=== PATIENT | female | born 1970 | race Caucasian/White ===

== ENCOUNTER 2018-10-29 09:39 | Outpatient (CLI) | payer MEDICAID, SELFPAY ==
[2018-10-29 12:03] LABS: HCT 46.4 % (36.0-46.0); HGB 15.4 g/dL (12.0-15.5); Mean Corp. HGB Concentration 33.2 g/dL (32.0-36.0); Mean Corpuscular Hemoglobin 30.7 pg (27.0-33.0); Mean Corpuscular Volume 92.6 fL (80-95); Mean Platelet Volume 9.8 fL (8.0-11.0); Platelet Count 364 x1000/uL (130-400); RBC 5.01 m/cumm (4.00-5.20); RBC Distribution Width 14.3 % (11.7-14.6)
[2018-10-29 12:40] LABS: ALT 17 U/L (12-78); AST 14 U/L (15-37); Albumin 3.7 g/dL (3.4-5.0); Alkaline Phosphatase 99 U/L (46-116); BUN 15 mg/dL (7-18); Bilirubin, Total 0.3 mg/dL (0.2-1.0); CREATININE 0.98 mg/dL (0.55-1.02); Calcium 9.3 mg/dL (8.5-10.1); Chloride 105 mmol/L (98-107); Glucose 97 mg/dL (70-100); Magnesium 2.3 mg/dL (1.8-2.4); Potassium 4.5 mmol/L (3.5-5.1); Sodium 141 mmol/L (136-145); Total Protein 6.6 g/dL (6.4-8.2)
== END 2018-10-29 09:59 ==
PROVIDERS: PCP Family Medicine; Visit Provider Family Medicine
DX: K21.9 Gastro-esophageal reflux disease without esophagitis (principal); F31.9 Bipolar disorder, unspecified
CPT/HCPCS: 36415; 80053; 85027; 83735

== ENCOUNTER 2018-12-10 00:43 | Outpatient (CLI) | payer MEDICAID, SELFPAY ==
--- NOTE | 2018-12-10 10:00 | DI.MAMMO_ITS ---
SYMPTOM/DIAGNOSIS: SCREENING, Z12.31 MAMMOGRAMS: Mammograms were interpreted according to the usual protocol including computer analysis with CAD system, tomosynthesis and C view imaging. Comparison is made with prior examinations. Breast density, Category B. No suspicious masses or microcalcifications are seen. There is no definite evidence of malignancy. IMPRESSION: Negative mammogram. Routine screening is recommended. Category 1. MQSA ASSESSMENT OF FINDINGS: Negative. Category 1. Patient will receive a letter notifying them of these results. BI-RADS category B. There are scattered areas of fibroglandular density.
== END 2018-12-10 01:03 ==
PROVIDERS: PCP Family Medicine; Visit Provider Family Medicine
DX: Z12.31 Encounter for screening mammogram for malignant neoplasm of breast (principal)
CPT/HCPCS: 77063; 77067

== ENCOUNTER 2020-01-22 01:14 | Outpatient (CLI) | payer MEDICAID, SELFPAY ==
[2020-01-22 10:39] LABS: HCT 46.6 % (36.0-46.0); HGB 15.7 g/dL (12.0-15.5); Mean Corp. HGB Concentration 33.7 g/dL (32.0-36.0); Mean Corpuscular Hemoglobin 31.7 pg (27.0-33.0); Mean Platelet Volume 9.3 fL (8.0-11.0); Platelet Count 410 x1000/uL (130-400); RBC 4.96 m/cumm (4.00-5.20); RBC Distribution Width 13.7 % (11.7-14.6); White Blood Cell Count 10.83 k/cumm (4.4-10.8)
[2020-01-22 11:09] LABS: ALT 20 U/L (14-59); AST 13 U/L (15-37); Albumin 3.9 g/dL (3.4-5.0); Alkaline Phosphatase 104 U/L (46-116); Anion Gap 11.4 mmol/L (3-11); BUN 17 mg/dL (7-18); Bilirubin, Total 0.3 mg/dL (0.2-1.0); CO2 23.6 mmol/L (21.0-32.0); CREATININE 1.24 mg/dL (0.55-1.02); Calcium 9.2 mg/dL (8.5-10.1); Calculated LDL 167 mg/dL (<100); Chloride 107 mmol/L (98-107); Cholesterol 228 mg/dL (<200); Estimated GFR 45.79 (mL/min/1.73m2); Glucose 118 mg/dL (74-106); HDL Cholesterol 42 mg/dL (40-60); Magnesium 2.2 mg/dL (1.8-2.4); Potassium 4.4 mmol/L (3.5-5.1); Sodium 142 mmol/L (136-145); TSH 1.85 uIU/mL (0.36-3.74); Total Protein 6.9 g/dL (6.4-8.2); Triglyceride 99 mg/dL (<150)
[2020-01-23 09:04] LABS: Prolactin 17.8 ng/mL (See Table)
[2020-01-24 11:30] LABS: Lamotrigine 6.2 mcg/mL (2.5 - 15.0)
== END 2020-01-22 01:34 ==
PROVIDERS: PCP Family Medicine; Visit Provider Family Medicine
DX: F31.9 Bipolar disorder, unspecified (principal); E83.42 Hypomagnesemia; N64.3 Galactorrhea not associated with childbirth; Z51.81 Encounter for therapeutic drug level monitoring; Z79.899 Other long term (current) drug therapy
CPT/HCPCS: 36415; 80053; 80061; 80175; 85027; 83735; 84146; 84443

== ENCOUNTER 2020-11-02 15:25 | Outpatient (REF) | payer MEDICAID, SELFPAY ==
--- NOTE | 2020-11-02 15:00 | PAPFT_PTH ---
PATIENT: Ana Cote LOC: [facility] U#:[id number] AGE/SX: 50/F ROOM: RE11/02/[address]: Hortencia Arellano MD : 1970 BED: DIS: 11/02/2020 SPEC #: [id number] RECD: 11/03/20 12:23 STATUS: AUGUSTINA REBria #: [id number] RAQUEL: 11/02/20 15:[address]: Hortencia Arellano DEPT: [facility] Cytology RECD BY: Gracia Cast Tissues: 1 - CX/ENDOCX FOR PAP SMEARS Procedures: PAP THIN PREP/UVM Screening HPV DNA PROBE Comments: [id number] (CHLAMYDIA/GC)
[2020-11-06 15:00] LABS: Chlamydia Result Negative (Negative); GC Result Negative (Negative)
== END 2020-11-02 15:26 | disposition home or self-care (01) ==
LOC: LBN 15:25
PROVIDERS: PCP Family Medicine; Visit Provider Family Medicine
DX: Z11.3 Encounter for screening for infections with a predominantly sexual mode of transmission (principal); Z12.4 Encounter for screening for malignant neoplasm of cervix; Z11.51 Encounter for screening for human papillomavirus (HPV)
CPT/HCPCS: 87491; 87591; 88142; 87624

== ENCOUNTER 2020-12-22 03:22 | Outpatient (CLI) | payer MEDICARE, MEDICAID, SELFPAY ==
[2020-12-22 12:45] LABS: Anion Gap 8.7 mmol/L (3-11); BUN 14 mg/dL (7-18); CO2 28.3 mmol/L (21.0-32.0); Calcium 9.2 mg/dL (8.5-10.1); Calculated LDL 169 mg/dL (<100); Chloride 106 mmol/L (98-107); Cholesterol 237 mg/dL (<200); Estimated GFR 58.45 (mL/min/1.73m2); Glucose 98 mg/dL (74-106); HDL Cholesterol 40 mg/dL (40-60); Potassium 4.2 mmol/L (3.5-5.1); Sodium 143 mmol/L (136-145); Triglyceride 142 mg/dL (<150)
== END 2020-12-22 03:23 | disposition home or self-care (01) ==
LOC: LOS 03:22
PROVIDERS: PCP Family Medicine; Visit Provider Family Medicine
DX: E78.5 Hyperlipidemia, unspecified (principal)
CPT/HCPCS: 36415; 80048; 80061

== ENCOUNTER 2022-01-18 02:03 | Outpatient (CLI) | payer MEDICARE, MEDICAID, SELFPAY ==
[2022-01-18 12:32] LABS: HCT 45.6 % (36.0-46.0); HGB 15.9 g/dL (11.2-15.7); MCH 32.6 pg (27.0-33.0); MCHC 34.9 % (32.0-36.0); MCV 93 fL (80-95); MPV 9.8 fL (8.0-11.0); Platelet Count 381 10^3/uL (130-400); RBC 4.88 10^6/uL (3.93-5.22); RDW 13.6 % (11.7-14.6); RDW-SD 46.8 fL; WBC 11.58 10^3/uL (4.4-10.8)
[2022-01-18 12:49] LABS: Hemoglobin A1C 5.6 % (<5.7)
[2022-01-18 13:02] LABS: ALT 23 U/L (14-59); AST 13 U/L (15-37); Albumin 3.9 g/dL (3.4-5.0); Alkaline Phosphatase 109 U/L (46-116); Anion Gap 11.6 mmol/L (3-11); BUN 12 mg/dL (7-18); Bilirubin, Total 0.4 mg/dL (0.2-1.0); CO2 23.4 mmol/L (21.0-32.0); Calcium 8.8 mg/dL (8.5-10.1); Calculated LDL 118 mg/dL (<100); Chloride 106 mmol/L (98-107); Cholesterol 183 mg/dL (<200); Estimated GFR 58.22 (mL/min/1.73m2); Glucose 112 mg/dL (74-106); HDL Cholesterol 48 mg/dL (40-60); Potassium 4.2 mmol/L (3.5-5.1); Sodium 141 mmol/L (136-145); TSH (W/Ref FT4) 1.64 uIU/mL (0.36-3.74); Total Protein 6.6 g/dL (6.4-8.2); Triglyceride 89 mg/dL (<150)
[2022-01-18 22:54] LABS: Prolactin 10.9 ng/mL (See Note)
[2022-01-19 11:01] LABS: Hepatitis C Ab w Rflx HCV PCR Negative (Negative)
[2022-01-19 11:18] LABS: HIV-1/2 Ag & Ab Screen Negative (Negative)
== END 2022-01-18 02:04 | disposition home or self-care (01) ==
LOC: LOS 02:03
PROVIDERS: PCP Nurse Practitioner; Visit Provider Family Medicine
DX: E78.5 Hyperlipidemia, unspecified (principal); D72.829 Elevated white blood cell count, unspecified; F31.9 Bipolar disorder, unspecified; I10 Essential (primary) hypertension; R73.9 Hyperglycemia, unspecified; J45.909 Unspecified asthma, uncomplicated; Z79.899 Other long term (current) drug therapy; Z11.59 Encounter for screening for other viral diseases; Z11.4 Encounter for screening for human immunodeficiency virus [HIV]
CPT/HCPCS: 36415; 80053; 80061; 85027; 86803; 87389; 83036; 84146; 84443

== ENCOUNTER → 2022-05-10 02:01 | Outpatient (CLI) | payer MEDICARE, MEDICAID, SELFPAY ==
--- NOTE | 2022-05-10 12:05 | DI.MAMMO_ITS ---
Exam(s) MAMMO SCREENING EXAM: MAMMO SCREENING CLINICAL HISTORY: screening,Z12.39 TECHNIQUE: Bilateral full field digital CC and MLO mammographic images were obtained with 3D tomosyn thesis and utilizing computer aided detection (CAD). COMPARISON: Available for comparison. FINDINGS: Masses/Architectural Distortion: None seen. Microcalcifications: No suspicious pleomorphic-type are seen. Skin Thickening/Nipple Retraction: None. IMPRESSION: 1. No significant interval change with no specific features of malignancy noted. 2. Unless there is more urgent need, screening mammography is recommended, as per [employer] [place] [employer] guidelines. BI-RADS Category 1 - Negative Breast Density - Category B - Scattered areas of fibroglandular density Breast density category C or D implies that the patient has dense breast tissue. Dense breast tissue is very common and is not abnormal but dense breast tissue can make it harder to find cancer on a ma mmogram. Also, dense breast tissue may increase their breast cancer risk. This information about the result of the mammogram report was provided to the patient to raise their awareness. Use this report when you speak with the patient about their risks for breast cancer, which includes their family hist ory. At that time, you may recommend for more screening tests (Ultrasound or MRI) as they might be us eful based on their risk. A negative radiographic report should not delay biopsy if a dominant or clinically suspicious mass is present. Up to ten percent of cancers are not identified on mammography. A negative report may reinforce clinical impression. Adenosis and dense breasts may obscure an underlying neoplasm. False positive reports average 6 to 10%. Patient will receive a letter notifying them of these results.
== END ==
PROVIDERS: PCP Nurse Practitioner; Visit Provider Family Medicine
DX: Z12.31 Encounter for screening mammogram for malignant neoplasm of breast (principal)
CPT/HCPCS: 77063; 77067

== ENCOUNTER 2022-05-27 13:49 | Outpatient (CLI) | payer MEDICARE, MEDICAID, SELFPAY ==
--- NOTE | 2022-05-27 13:45 | RT.EKG_ITS ---
APPROVED REPORT Exam: Resting ECG Reason for Exam: chest discomfort Patient Location: O HR:67 bpm ECG Measurements Heart Rate 67 AXIS MN 170 P 65 QRSd 97 QRS 32 QT 383 T 65 QTc 405 Conclusion Sinus rhythm...normal P axis, V-rate 50- 99 Probable left atrial enlargement...P >50mS, <-0.10mV V1 Otherwise normal
== END 2022-05-27 13:50 | disposition home or self-care (01) ==
LOC: DI.CM 13:50
PROVIDERS: PCP Nurse Practitioner; Visit Provider Emergency Medicine
DX: R07.89 Other chest pain (principal)
CPT/HCPCS: 93010

== ENCOUNTER → 2023-05-23 00:07 | Outpatient (CLI) | payer MEDICARE, MEDICAID, SELFPAY ==
--- NOTE | 2023-05-23 11:45 | DI.MAMMO_ITS ---
Exam(s) MAMMO SCREENING EXAM: MAMMO SCREENING CLINICAL HISTORY: screening,Z12.39 TECHNIQUE: Bilateral full field digital CC and MLO mammographic images were obtained with 3D tomosyn thesis and utilizing computer aided detection (CAD). COMPARISON: Available for comparison. FINDINGS: Masses/Architectural Distortion: None seen. Microcalcifications: No suspicious pleomorphic-type are seen. Skin Thickening/Nipple Retraction: None. IMPRESSION: 1. No significant interval change with no specific features of malignancy noted. 2. Unless there is more urgent need, screening mammography is recommended, as per [place] [employer] guidelines. BI-RADS Category 1 - Negative Breast Density - Category B - Scattered areas of fibroglandular density Breast density category C or D implies that the patient has dense breast tissue. Dense breast tissue is very common and is not abnormal but dense breast tissue can make it harder to find cancer on a ma mmogram. Also, dense breast tissue may increase their breast cancer risk. This information about the result of the mammogram report was provided to the patient to raise their awareness. Use this report when you speak with the patient about their risks for breast cancer, which includes their family hist ory. At that time, you may recommend for more screening tests (Ultrasound or MRI) as they might be us eful based on their risk. A negative radiographic report should not delay biopsy if a dominant or clinically suspicious mass is present. Up to ten percent of cancers are not identified on mammography. A negative report may reinforce clinical impression. Adenosis and dense breasts may obscure an underlying neoplasm. False positive reports average 6 to 10%. Patient will receive a letter notifying them of these results.
== END ==
PROVIDERS: PCP Nurse Practitioner Family; Visit Provider Nurse Practitioner Family
DX: Z12.31 Encounter for screening mammogram for malignant neoplasm of breast (principal)
CPT/HCPCS: 77063; 77067

== ENCOUNTER 2023-05-23 12:38 | Outpatient (CLI) | payer MEDICARE, MEDICAID, SELFPAY ==
[2023-05-23 12:32] LABS: Abs Immature Grans 0.03 10^3/uL (0.0-0.06); Absolute Basophil Count 0.04 10^3/uL (0.0-0.2); Absolute Lymphocyte Count 3.12 10^3/uL (1.2-3.4); Absolute Monocyte Count 0.68 10^3/uL (0.1-0.8); Basophils % 0.4; HCT 49.4 % (36.0-46.0); HGB 16.7 g/dL (11.2-15.7); Immature Grans % 0.3; Lymphocytes % 28.3; MCH 31.3 pg (27.0-33.0); MCHC 33.8 % (32.0-36.0); MCV 93 fL (80-95); MPV 9.5 fL (8.0-11.0); Monocytes % 6.2; Neutrophils % 64.8; Platelet Count 369 10^3/uL (130-400); RBC 5.34 10^6/uL (3.93-5.22); RDW 13.4 % (11.7-14.6); RDW-SD 45.8 fL; WBC 11.03 10^3/uL (4.4-10.8)
[2023-05-23 12:36] LABS: Absolute Neutrophil Count 7.15 10^3/uL (1.2-6.7)
[2023-05-23 13:14] LABS: Bilirubin Negative (Negative); Blood Trace-lysed (Negative); Clarity Clear (Clear); Glucose Negative (Negative); Ketones Negative (Negative); Leukocyte Esterase Negative (Negative); Nitrite Negative (Negative); Urobilinogen 0.2 mg/dL (Up to 0.2)
[2023-05-23 13:15] LABS: ALT 16 U/L (14-59); AST 16 U/L (15-37); Albumin 3.8 g/dL (3.4-5.0); Alkaline Phosphatase 121 U/L (46-116); Anion Gap 10.1 mmol/L (3-11); BUN 15 mg/dL (7-18); Bilirubin, Total 0.5 mg/dL (0.2-1.0); CO2 22.9 mmol/L (21.0-32.0); Calcium 9.5 mg/dL (8.5-10.1); Calculated LDL 131 mg/dL (<100); Chloride 106 mmol/L (98-107); Cholesterol 204 mg/dL (<200); Estimated GFR 67.36 (mL/min/1.73m2); Glucose 113 mg/dL (74-106); HDL Cholesterol 46 mg/dL (40-60); Sodium 139 mmol/L (136-145); Total Protein 7.5 g/dL (6.4-8.2); Triglyceride 139 mg/dL (<150)
[2023-05-23 13:22] LABS: Bacteria Negative HPF (Negative); C & S Indicated? No; Casts Negative LPF (Negative); Crystals Negative HPF (Negative); Epithelial Cells Few HPF (Negative); Mucus Negative (Negative); RBC 0-2 HPF (0-2); WBC 0-2 HPF (0-5)
[2023-05-23 13:40] LABS: Bilirubin, Direct 0.1 mg/dL (0.0-0.2)
== END 2023-05-23 12:39 | disposition home or self-care (01) ==
LOC: LBO 12:38
PROVIDERS: PCP Nurse Practitioner Family; Visit Provider Counselor Addiction (Substance Use Disorder)
DX: F31.73 Bipolar disorder, in partial remission, most recent episode manic (principal)
CPT/HCPCS: 36415; 80053; 80061; 80076; 81003; 81015; 84443; 85025

== ENCOUNTER 2023-09-04 16:58 | Outpatient (CLI) | payer MEDICARE, MEDICAID, SELFPAY ==
--- NOTE | 2023-09-04 16:45 | RT.EKG_ITS ---
APPROVED REPORT Exam: Resting ECG Reason for Exam: near syncope Patient Location: O HR:59 bpm ECG Measurements Heart Rate 59 AXIS IN 182 P 67 QRSd 86 QRS 39 QT 428 T 68 QTc 424 Conclusion Sinus rhythm...normal P axis, V-rate 50- 99 Probable left atrial enlargement...P >50mS, <-0.10mV V1 I have reviewed and interpreted ECG and agree with software generated interpretation.
== END 2023-09-04 16:59 | disposition home or self-care (01) ==
LOC: DI.CM 16:59
PROVIDERS: PCP Nurse Practitioner Family; Visit Provider Nurse Practitioner Family
DX: R07.9 Chest pain, unspecified (principal); R55 Syncope and collapse
CPT/HCPCS: 93010

== ENCOUNTER 2024-08-08 17:53 | Outpatient (REF) | payer MEDICARE, MEDICAID, SELFPAY ==
[2024-08-08 20:47] LABS: HCT 43.6 % (36.0-46.0); HGB 14.2 g/dL (11.2-15.7); MCH 30.7 pg (27.0-33.0); MCHC 32.6 % (32.0-36.0); MCV 94 fL (80-95); MPV 9.5 fL (8.0-11.0); Platelet Count 343 10^3/uL (130-400); RBC 4.63 10^6/uL (3.93-5.22); RDW 13.7 % (11.7-14.6); RDW-SD 47.2 fL; WBC 12.72 10^3/uL (4.4-10.8)
[2024-08-08 21:03] LABS: ALT 13 U/L (14-59); AST 12 U/L (15-37); Albumin 3.4 g/dL (3.4-5.0); Alkaline Phosphatase 103 U/L (46-116); Anion Gap 9.5 mmol/L (3-11); BUN 12 mg/dL (7-18); Bilirubin, Total 0.24 mg/dL (0.2-1.0); CO2 27.5 mmol/L (21.0-32.0); CREATININE 0.9 mg/dL (0.55-1.02); Calcium 9.2 mg/dL (8.5-10.1); Calculated LDL 87 mg/dL (<100); Chloride 106 mmol/L (98-107); Cholesterol 160 mg/dL (<200); Glucose 84 mg/dL (74-106); HDL Cholesterol 51 mg/dL (40-60); Potassium 4.3 mmol/L (3.5-5.1); Sodium 143 mmol/L (136-145); Total Protein 6.5 g/dL (6.4-8.2); Triglyceride 112 mg/dL (<150)
== END 2024-08-08 17:54 | disposition home or self-care (01) ==
LOC: LBN 17:53
PROVIDERS: PCP Nurse Practitioner Family; Visit Provider Nurse Practitioner Family
DX: F31.9 Bipolar disorder, unspecified (principal); Z00.00 Encounter for general adult medical examination without abnormal findings; I10 Essential (primary) hypertension; K21.9 Gastro-esophageal reflux disease without esophagitis; J45.909 Unspecified asthma, uncomplicated; J44.9 Chronic obstructive pulmonary disease, unspecified
CPT/HCPCS: 80053; 80061; 85027

== ENCOUNTER 2024-08-09 01:22 | Emergency (ER) | payer MEDICARE, MEDICAID, SELFPAY ==
[2024-08-09] VITALS (34 sets, daily range): BP systolic 91–179; BP diastolic 51–105; PULSE 69–85; RESP 16; TEMP 36.6–36.9; O2SAT 87–99
[2024-08-09 01:49] LABS: Bilirubin Negative (Negative); Blood Trace-intact (Negative); Clarity Clear (Clear); Glucose Negative (Negative); Ketones Negative (Negative); Leukocyte Esterase Negative (Negative); Nitrite Negative (Negative); Specific Gravity 1.015 (1.005-1.025); Urobilinogen 0.2 mg/dL (Up to 0.2)
[2024-08-09 01:59] LABS: Bacteria Rare HPF (Negative); C & S Indicated? No; Casts Negative LPF (Negative); Crystals Negative HPF (Negative); Epithelial Cells Rare HPF (Negative); Mucus Negative (Negative); RBC 0-2 HPF (0-2); WBC Negative HPF (0-5)
--- NOTE | 2024-08-09 02:00 | DI.CT_ITS ---
Exam(s) CT ABDOMEN PELVIS W EXAM: CT ABDOMEN PELVIS W CLINICAL HISTORY: periumbilical and suprapubic abd pain. TECHNIQUE: Imaging Protocol: Axial computed tomography images with coronal and sagittal reformatted images were created and reviewed CONTRAST MATERIAL: Intravenous: Omnipaque 350 Contrast volume:100 ml Oral: no COMPARISON: No exams were available for comparison FINDINGS: ABDOMEN and PELVIS: Lung Bases: No acute findings. Liver: Normal density. No suspicious mass. Gallbladder and biliary tract: Status post cholecystectomy. No biliary dilation. Pancreas: Normal density. No abnormal calcifications or inflammatory process. No evidence of mass. Spleen: Normal. Kidneys: Normal size, contour and axis. No radiodense stones. No obstructive uropathy. No suspicious masses seen. Adrenal glands: No masses seen. Vasculature: Abdominal aorta non-dilated. Soft tissues: Unremarkable. Bladder: No gross wall thickening. No calculi.No focal mass. Bowel: No obstruction. Diverticulosis of the descending and sigmoid colon. Surrounding inflammatio n involving the sigmoid consistent with diverticulitis. No evidence of perforation or abscess. Emily endix normal. Peritoneal cavity: No ascites. No focal collection. No mesenteric inflammatory response. No free air . Bones: Unremarkable for age. Reproductive organs: Hysterectomy. Lymph nodes: No pathologically enlarged lymph nodes. IMPRESSION:: Sigmoid diverticulitis. No evidence of abscess or perforation. RADIATION DOSE DELIVERED: 604.09mGy.cm Total DLP DATA REPOSITORY: All CT scans at this facility are submitted to the National Radiology Data Registry (NRDR) Dose Index Registry (DIR) with the [employer] (ACR). RADIATION OPTIMIZATION: All CT scans at this facility use at least one of these dose optimization te chniques: automated exposure control; mA and/or kV adjustment per patient size (includes targeted exa ms where dose is matched to clinical indication); or iterative reconstruction.
[2024-08-09 02:17] LABS: Abs Immature Grans 0.05 10^3/uL (0.0-0.06); Absolute Basophil Count 0.03 10^3/uL (0.0-0.2); Absolute Eosinophil Count 0.01 10^3/uL (0.0-0.7); Absolute Lymphocyte Count 2.12 10^3/uL (1.2-3.4); Absolute Monocyte Count 1.09 10^3/uL (0.1-0.8); Absolute Neutrophil Count 10.03 10^3/uL (1.2-6.7); Basophils % 0.2 %; Eosinophils % 0.1 %; HCT 41.3 % (36.0-46.0); HGB 13.9 g/dL (11.2-15.7); Immature Grans % 0.4 %; Lymphocytes % 15.9 %; MCH 30.5 pg (27.0-33.0); MCHC 33.7 % (32.0-36.0); MCV 91 fL (80-95); MPV 9.4 fL (8.0-11.0); Monocytes % 8.2 %; Neutrophils % 75.2 %; Platelet Count 311 10^3/uL (130-400); RBC 4.55 10^6/uL (3.93-5.22); RDW 13.7 % (11.7-14.6); WBC 13.34 10^3/uL (4.4-10.8)
[2024-08-09] MEDS: ACETAMINOPHEN 1,000 MG/100 ML BAG 400 MG IVPB (02:24)
[2024-08-09] MEDS: Ketorolac 15 MG/ML VIAL IVP (02:24)
[2024-08-09 02:30] LABS: ALT 15 U/L (14-59); AST 11 U/L (15-37); Albumin 3.2 g/dL (3.4-5.0); Alkaline Phosphatase 96 U/L (46-116); Anion Gap 6.5 mmol/L (3-11); BUN 11 mg/dL (7-18); Bilirubin, Total 0.31 mg/dL (0.2-1.0); CO2 28.5 mmol/L (21.0-32.0); CREATININE 0.9 mg/dL (0.55-1.02); Calcium 8.9 mg/dL (8.5-10.1); Chloride 106 mmol/L (98-107); Glucose 108 mg/dL (74-106); Lipase 241 U/L (<78); Potassium 3.9 mmol/L (3.5-5.1); Sodium 141 mmol/L (136-145); Total Protein 6.7 g/dL (6.4-8.2)
--- NOTE | 2024-08-09 02:31 | ED.GENADUL_ITS ---
Discharge Plan Disposition Patient Disposition: Home Condition: Good Discharge Details Clinical Impression: Diverticulitis large intestine Primary Care Provider: Enma Palmer ED Provider: Klaudia Alan Home Meds and New Rx's Prescriptions: New amoxicillin-pot clavulanate 875-125 mg tablet 1 tab PO Q8H 5 Days Qty: 15 0RF Continued (DME) Space Chamber Spacer See Rx Instructions .ROUTE .MEDSUPPLY Qty: 1 0RF Rx Instructions: As directed Breo Ellipta 50-25 mcg/dose blister with device 1 inh inhalation Q24H Qty: 60 3RF triamcinolone acetonide 0.5 % cream 1 applic Topical DAILY PRN (Reason: dermatitis) Qty: 1 3RF Rx Instructions: local application unde breasts once a day, in thin layer, until rash is gone olmesartan 5 mg tablet 5 mg PO DAILY Qty: 90 3RF atorvastatin 10 mg tablet 10 mg PO DAILY Qty: 90 3RF lamotrigine 150 mg tablet 150 mg PO BID Qty: 60 0RF Rx Instructions: RX by John Navas loratadine [Allergy Relief (loratadine)] 10 mg tablet 10 mg PO DAILY Qty: 90 3RF albuterol sulfate 90 mcg/actuation HFA aerosol inhaler 1 - 2 puff Inhalation Q4H PRN Qty: 2 5RF ziprasidone HCl 80 mg capsule 80 mg PO BID Rx Instructions: give with food (meal/snack) Discharge Instructions Instructions: Diverticulitis (DC), Full Liquid Diet Additional Instructions: Follow a liquid diet for the next 3 days. Antibiotics three times a day for the next 5 days. Tylenol and ibuprofen over the counter for pain; follow the directions on the bottle. Call your primary care doctor in the morning to schedule an appointment within the next 72 hours to follow up on your visit here. Return to the emergency department for new or worsening symptoms including new/different/worse pain, vomiting, or if you have any other concerns. Referrals: Enma Palmer NP [Primary Care Provider] - [facility] General Mode of arrival: ambulatory . Date/Time Provider Initiated Documentation: 08/09/24 01:48 . Limitations to Documentation: no limitations . Information obtained by: patient . HPI Narrative: 54yo female with periumbilcial and RLQ abdominal pain for the past two weeks. Saw PCP yesterday, had blood drawn and plan for outpatient CT. She was told to present to the ED should her symptoms worsen. Tonight pain became worse and it was difficulty to walk, she had to 'hunch over', and so presents to the ED tonight. Pain has typically 'come and gone', moderate to severe in intensity. Mild nausea, no vomiting, no diarrhea. No dysuria or hematuria. No flank pain. No vaginal discharge. Has had hysterectomy, both ovaries remain present. She is otherwise in her usual state of health with no fevers, chills, rash, chest pain, shortness of breath, or other concerns. Related Data Home Medications ?Medication ?Instructions ?Recorded ?Confirmed triamcinolone acetonide 0.5 % 1 applic topical DAILY PRN 02/24/20 08/09/24 topical cream dermatitis #1 g inhalational spacing device (Space #1 ea 12/08/21 08/09/24 Chamber) loratadine 10 mg tablet (Allergy 10 mg PO DAILY #90 tabs 09/26/22 08/09/24 Relief (loratadine)) albuterol sulfate 90 mcg/actuation 1 - 2 puff inhalation Q4H PRN #2 06/22/24 08/09/24 aerosol inhaler inhalations atorvastatin 10 mg tablet 10 mg PO DAILY #90 tabs 07/16/24 08/09/24 lamotrigine 150 mg tablet 150 mg PO BID bipolar disease #60 07/16/24 08/09/24 tabs olmesartan 5 mg tablet 5 mg PO DAILY #90 tabs 07/16/24 08/09/24 ziprasidone HCl 80 mg capsule 80 mg PO BID 07/18/24 08/09/24 fluticasone furoate 50 1 inh inhalation Q24H #60 ea 08/08/24 08/09/24 mcg-vilanterol 25 mcg/dose inhalation powder (Breo Ellipta) amoxicillin 875 mg-potassium 1 tab PO Q8H 5 days #15 tabs 08/09/24 clavulanate 125 mg tablet Previous Rx's ?Medication ?Instructions ?Recorded triamcinolone acetonide 0.5 % 1 applic topical DAILY PRN 02/24/20 topical cream dermatitis #1 g inhalational spacing device (Space #1 ea 12/08/21 Chamber) loratadine 10 mg tablet (Allergy 10 mg PO DAILY #90 tabs 09/26/22 Relief (loratadine)) albuterol sulfate 90 mcg/actuation 1 - 2 puff inhalation Q4H PRN #2 06/22/24 aerosol inhaler inhalations atorvastatin 10 mg tablet 10 mg PO DAILY #90 tabs 07/16/24 lamotrigine 150 mg tablet 150 mg PO BID bipolar disease #60 07/16/24 tabs olmesartan 5 mg tablet 5 mg PO DAILY #90 tabs 07/16/24 fluticasone furoate 50 1 inh inhalation Q24H #60 ea 08/08/24 mcg-vilanterol 25 mcg/dose inhalation powder (Breo Ellipta) amoxicillin 875 mg-potassium 1 tab PO Q8H 5 days #15 tabs 08/09/24 clavulanate 125 mg tablet Allergies Allergy/AdvReac Type Severity Reaction Status Date / Time No Known Allergies Allergy Verified 08/09/24 01:42 General Stated Complaint: Abd Prob STARR: 3 Review of Systems Narrative: see HPI Exam Narrative Exam Narrative: General: Alert, well appearing, well nourished, in no acute distress. Head: Normocephalic, atraumatic Neck: Trachea midline, ?Neck supple. ENT: ?MMM.? No oropharygeal lesions or exudate. Cardiac: ?RRR, no murmurs appreciated Resp: No respiratory distress. CTAB. Abd: ?Soft, non-distended, TTP of periumbilical region with no rebound or guarding : ?+ suprapubic tenderness. No CVA tenderness. Extremities: ?No deformities.? No peripheral edema. Neurologic: GCS 15. ? Moves all extremities freely against gravity Course Vital Signs Vital signs: Vital Signs Temperature 36.6 C 08/09/24 01:30 Pulse 85 08/09/24 01:30 Respiratory Rate 16 08/09/24 01:30 Blood Pressure 148/98 H 08/09/24 01:30 Pulse Oximetry 93 08/09/24 01:30 Temperature 36.6 C 08/09/24 01:36 Temperature Source Oral 08/09/24 01:36 Pulse 85 08/09/24 01:36 Respiratory Rate 16 08/09/24 01:36 Blood Pressure 148/98 H 08/09/24 01:36 Blood Pressure Position Supine 08/09/24 01:36 Pulse Oximetry 94 08/09/24 02:00 Oxygen Delivery Method Room Air 08/09/24 01:36 Oxygen Flow Rate 0 08/09/24 01:36 Pain Level 5 08/09/24 01:36 Lab/Test Results Lab/Test Results: Laboratory Tests Range/Units 08/09/24 08/09/24 01:41 02:04 WBC (4.4-10.8) 10^3/uL 13.34 H RBC (3.93-5.22) 10^6/uL 4.55 Hgb (11.2-15.7) g/dL 13.9 Hct (36.0-46.0) % 41.3 MCV (80-95) fL 91 MCH (27.0-33.0) pg 30.5 MCHC (32.0-36.0) % 33.7 RDW (11.7-14.6) % 13.7 Plt Count (130-400) 10^3/uL 311 MPV (8.0-11.0) fL 9.4 Immature Gran % % 0.4 Neutrophils % % 75.2 Lymphocytes % % 15.9 Monocytes % % 8.2 Eosinophils % % 0.1 Basophils % % 0.2 Nucleated RBC % (0.0-0.3) % 0.0 Absolute Neutrophils (1.2-6.7) 10^3/uL 10.03 H Absolute Lymphocytes (1.2-3.4) 10^3/uL 2.12 Absolute Monocytes (0.1-0.8) 10^3/uL 1.09 H Absolute Eosinophils (0.0-0.7) 10^3/uL 0.01 Absolute Basophils (0.0-0.2) 10^3/uL 0.03 Urine Color (Yellow) Yellow Urine Clarity (Clear) Clear Urine pH (5-8) 7.0 Ur Specific [place] (1.005-1.025) 1.015 Urine Protein (Neg-Trace) mg/dL Negative Urine Ketones (Negative) mg/dL Negative Urine Blood (Negative) Trace-intact H Urine Nitrite (Negative) Negative Urine Bilirubin (Negative) Negative Urine Urobilinogen (Up to 0.2) mg/dL 0.2 Ur Leukocyte Esterase (Negative) Negative Urine RBC (0-2) HPF 0-2 Urine WBC (0-5) HPF Negative Ur Epithelial Cells (Negative) HPF Rare Urine Crystals (Negative) HPF Negative Urine Bacteria (Negative) HPF Rare Urine Casts (Negative) LPF Negative Urine Mucus (Negative) Negative Ur Culture Indicated? No Urine Glucose (Negative) mg/dL Negative Medical Decision Making 54yo female with periumbilcial and RLQ abdominal pain for the past two weeks. Saw PCP yesterday, had blood drawn and plan for outpatient CT, told to present to the ED should her symptoms worsen which did happen overnight. Vital signs reassuring on arrival, periumbical and suprapubic area mildly TTP with no peritoneal signs. History and exam less suggestive of ovarian pathology (torsion, cyst, abscess); would not transfer for pelvic US and will instead start with CT. Given tylenol and toradol for pain. Labs reviewed as below, CBC with mild leukoctysois at 13.3 (slight up from 12.7 earlier in the day), CMP with no actionable abnormalities, lipase elevated but not suggestive of pancreatitis. CT abd/pelvis independently reviewed; no obstruction or free fluid on my view, agree with radiology read below with diverticulitits. As she is non-toxic appearing with a non-peritoneal exam and has been tolerating PO, appropriate for outpatient management. Advised liquid diet, 5 days course of amox-clauv prescribed, and instructed to followup with PCP within the next few days. Discharged home; discharge instructions and return precuations were reviewed with patient who verbalized understanding. All questions were answered and she is in full agreement with the plan. Medical Records Medical records reviewed: Yes I reviewed the patient's medical records. Imaging Data Radiologic Study: Imaging: CT Scan Radiologist's impression: IMPRESSION: 1. Sigmoid diverticulitis. 2. Additional findings as above. Lab Data Lab results reviewed: Yes I reviewed the patient's lab results. Labs: Laboratory Tests Range/Units 08/09/24 08/09/24 01:41 02:04 WBC (4.4-10.8) 10^3/uL 13.34 H RBC (3.93-5.22) 10^6/uL 4.55 Hgb (11.2-15.7) g/dL 13.9 Hct (36.0-46.0) % 41.3 MCV (80-95) fL 91 MCH (27.0-33.0) pg 30.5 MCHC (32.0-36.0) % 33.7 RDW (11.7-14.6) % 13.7 Plt Count (130-400) 10^3/uL 311 MPV (8.0-11.0) fL 9.4 Immature Gran % % 0.4 Neutrophils % % 75.2 Lymphocytes % % 15.9 Monocytes % % 8.2 Eosinophils % % 0.1 Basophils % % 0.2 Nucleated RBC % (0.0-0.3) % 0.0 Absolute Neutrophils (1.2-6.7) 10^3/uL 10.03 H Absolute Lymphocytes (1.2-3.4) 10^3/uL 2.12 Absolute Monocytes (0.1-0.8) 10^3/uL 1.09 H Absolute Eosinophils (0.0-0.7) 10^3/uL 0.01 Absolute Basophils (0.0-0.2) 10^3/uL 0.03 Sodium (136-145) mmol/L 141 Potassium (3.5-5.1) mmol/L 3.9 Chloride (98-107) mmol/L 106 Carbon Dioxide (21.0-32.0) mmol/L 28.5 Anion Gap (3-11) mmol/L 6.5 BUN (7-18) mg/dL 11 Creatinine (0.55-1.02) mg/dL 0.9 Est GFR (CKD-EPI 2020) (mL/min/1.73m2) 75.50 Glucose (74-106) mg/dL 108 H Calcium (8.5-10.1) mg/dL 8.9 Total Bilirubin (0.2-1.0) mg/dL 0.31 AST (15-37) U/L 11 L ALT (14-59) U/L 15 Alkaline Phosphatase (46-116) U/L 96 Total Protein (6.4-8.2) g/dL 6.7 Albumin (3.4-5.0) g/dL 3.2 L Lipase (<78) U/L 241 H Serum HCG, Qual Negative Urine Color (Yellow) Yellow Urine Clarity (Clear) Clear Urine pH (5-8) 7.0 Ur Specific [place] (1.005-1.025) 1.015 Urine Protein (Neg-Trace) mg/dL Negative Urine Ketones (Negative) mg/dL Negative Urine Blood (Negative) Trace-intact H Urine Nitrite (Negative) Negative Urine Bilirubin (Negative) Negative Urine Urobilinogen (Up to 0.2) mg/dL 0.2 Ur Leukocyte Esterase (Negative) Negative Urine RBC (0-2) HPF 0-2 Urine WBC (0-5) HPF Negative Ur Epithelial Cells (Negative) HPF Rare Urine Crystals (Negative) HPF Negative Urine Bacteria (Negative) HPF Rare Urine Casts (Negative) LPF Negative Urine Mucus (Negative) Negative Ur Culture Indicated? No Urine Glucose (Negative) mg/dL Negative Quality:SDOH Health Related Social Needs: No Data to Display PFSH All Active Problems (Updated 08/09/24 @ 05:48 by Klaudia Alan MD) Diverticulitis large intestine (Acute) Hypertension (Chronic) Plantar wart of right foot (Acute) Hyperglycemia (Acute) [id number] Leukocytosis (Acute) 2021- mild recurrent-stable, likeley secondary to meds(mental health) Chronic headache (Acute) 11/2021-current headache most consistent with tension headache, also element of rebound headache secondary to aspirin use Obesity (Chronic) Nicotine dependence (Acute) 11/2021- 1 ppd, 35 pk yr hx Hyperlipidemia (Acute) Gastroesophageal reflux disease (Acute 03/09/17) Bipolar affective disorder (Acute) labs q 1 / July Follow[address] Melo Asthma (Acute) Grief (Acute) a. Acute grief secondary to son's suicide in January 2014. Elevated white blood cell count (Acute) Chronic obstructive pulmonary disease (Chronic) Surgical History (Updated 12/08/21 @ 07:58 by Dharmesh Isaacs MD) Partial Hysterectomy (~1992) (uterus removed only) Cholecystectomy Family History (Updated 10/21/19 @ 11:39 by Terell Mabry) Mother Heart disease Hyperlipidemia Father Hyperlipidemia Cancer of kidney Sister Hyperlipidemia Son , age 22 Depression Asthma Daughter Depression Substance abuse Social History (Updated 07/17/24 @ 10:58 by Sanjuana Erickson) Smoking/Tobacco Use Status: Current every day Tobacco Type: e-cigarettes Tobacco: How many years used: 40 Quit status: quit date established Smoking risk assessment performed?: Yes Alcohol Intake: former Drug use: Occasionally Substance use type: marijuana Caregiver/Support person: No Household members: none Housing: house Number of Children: 2 number of grandchildren: 1 Education Level: high school Do you need help understanding health information?: Rarely current occupation: [employer] Pets and animals: Yes Pets and animals: cat(s), dog(s) and bird(s) Sexually active: No Do you think of yourself as: straight/heterosexual Current gender identity: female What is your relationship status?: How often do you talk on the phone with friends or family?: three or more times per week How often do you get together with friends or relatives?: once per week How often do you attend anabaptism or rastafari services?: decline to answer Do you belong to any clubs or organized social groups?: yes Panel score (0-1 are the most socially isolated patients): 2 What type of physical activity do you participate in: walking, swimming and other Details: stationary bike, treadmill gym Duration: 30-45 minutes/day Frequency: 5-6 times per week Delmi/Episcopalian: None Special delmi needs: No Seatbelt use: always Helmet use: No Drive intox or ride w/intox 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
[2024-08-09 02:36] LABS: HCG Qual (Serum) Negative
[2024-08-09] MEDS: Omnipaque 350 MG/ML 100 ML BTL IJ (03:05)
[2024-08-09] MEDS: Normal Saline - Diluent 50 ML VIAL IJ (03:05)
--- NOTE | 2024-08-09 05:44 | DI.VRAD_ITS ---
PROCEDURE INFORMATION: Exam: CT Abdomen And Pelvis With Contrast Exam date and time: 08/09/2024 2:40 AM Age: 54 years old Clinical indication: Abdominal pain; Other: Periumbilical and suprapubic abd pain TECHNIQUE: Imaging protocol: Computed tomography of the abdomen and pelvis with contrast. Contrast material: OMNI 350; Contrast volume: 100 ml; Contrast route: INTRAVENOUS (IV); COMPARISON: No relevant prior studies available. FINDINGS: Limitations: Mild motion artifact. Liver: No focal hepatic lesion identified. Gallbladder and biliary ducts: Cholecystectomy. Pancreas: No CT evidence for acute pancreatitis. Spleen: No splenomegaly. Adrenal glands: Left adrenal thickening. Kidneys and ureters: No hydronephrosis or evidence for pyelonephritis. Stomach and bowel: No intestinal obstruction is evident. Colonic diverticula. There are inflammatory changes adjacent to the sigmoid colon in the pelvis which is mildly thickened, consistent with diverticulitis. Appendix: No evidence of appendicitis. Intraperitoneal space: No free air. Vasculature: Atherosclerotic changes in the aorta and its branches. Lymph nodes: Nonspecific mesenteric and retroperitoneal lymph nodes. Urinary bladder: No acute findings. Reproductive: Patient appears to be status post hysterectomy. Bones/joints: No pertinent acute abnormality seen. Soft tissues: No pertinent acute abnormality seen. IMPRESSION: 1. Sigmoid diverticulitis. 2. Additional findings as above. Dictated and Authenticated by: Karen Joel MD. Ordering:ZAMZAM Rudolph MD
--- NOTE | 2024-08-09 23:10 | NUR.NOTE ---
Nursing Note: Pt called with question about antibiotic and definition of the clear liquid diet - if it would include ice cream. Questions answered.
== END 2024-08-09 06:09 | disposition home or self-care (01) ==
PROVIDERS: Emergency Provider Student in an Organized Health Care Education/Training Program; PCP Nurse Practitioner Family
DX: K57.32 Diverticulitis of large intestine without perforation or abscess without bleeding (principal)
CPT/HCPCS: 36415; 80053; 83690; 96365; 96375; 99285; 74177; 81003; 81015; 84703; 85025; 99284; J0131; J1885; J3490

== ENCOUNTER 2025-01-30 00:32 | Outpatient (CLI) | payer MEDICARE, MEDICAID, SELFPAY ==
--- NOTE | 2025-01-30 08:45 | DI.MAMMO_ITS ---
Exam(s) MAMMO SCREENING EXAM: MAMMO SCREENING CLINICAL HISTORY: SCREENING, Z12.39 TECHNIQUE: Bilateral full field digital CC and MLO mammographic images were obtained with 3D tomosynthesis and utilizing computer aided detection (CAD). COMPARISON: Comparison is made with prior examinations. FINDINGS: Masses/Architectural Distortion: No suspicious masses or areas of architectural distortion are present. Microcalcifications: No suspicious pleomorphic-type are seen. Skin Thickening/Nipple Retraction: None. IMPRESSION: 1. No significant interval change with no specific features of malignancy noted. 2. Unless there is more urgent need, screening mammography is recommended, as per [place] [employer] guidelines. BI-RADS Category 1 - Negative Breast Density - Category B - There are scattered areas of fibroglandular density. Breast density Category C or D implies that the patient has dense breast tissue. Dense breast tissue can make it harder to find cancer on a mammogram. Dense breast tissue is also associated with an increased risk of breast cancer. This information about the result of the mammogram report was provided to the patient to raise their awareness. Use this report when you speak with the patient about their risks for breast cancer, which includes their family history. At that time, you may recommend additional screening tests (Ultrasound or MRI) as these tests may add significant information. A negative radiographic report should not delay biopsy if a dominant or clinically suspicious mass is present. Up to ten percent of cancers are not identified on mammography. A negative report may reinforce clinical impression. Adenosis and dense breasts may obscure an underlying neoplasm. False positive reports average 6 to 10%. Patient will receive a letter notifying them of these results.
== END 2025-01-30 00:52 ==
LOC: DI 00:33
PROVIDERS: PCP Nurse Practitioner Family; Visit Provider Nurse Practitioner Family
DX: Z12.31 Encounter for screening mammogram for malignant neoplasm of breast (principal); R92.323 Mammographic fibroglandular density, bilateral breasts
CPT/HCPCS: 77063; 77067